=== PATIENT | female | born 1980 | race African-American/Black ===

== ENCOUNTER 2022-09-29 09:45 | Emergency (ER) | payer MEDICAID, OTHER ==
[~2022-09-29] VITALS: Ht 170.2 cm; Wt 59.0 kg
[2022-09-29] MEDS ORDERED: CYCLOBENZAPRINE 10MG TABLET PO ONE (11:00)
[2022-09-29] MEDS ORDERED: KETOROLAC 30MG/ML VIAL IM ONE (11:00)
[2022-09-29 11:42] VITALS: BP 136/81
[2022-09-29] MEDS ORDERED: NAPR-1164 MT (12:18)
[2022-09-29] MEDS ORDERED: CYCL5TAB MT (12:18)
== END 2022-09-29 12:41 | disposition home or self-care (01) ==
LOC: ER 09:45
DX: S16.1XXA Strain of muscle, fascia and tendon at neck level, initial encounter (principal); V43.52XA Car driver injured in collision with other type car in traffic accident, initial encounter; Y93.89 Activity, other specified; Y92.410 Unspecified street and highway as the place of occurrence of the external cause
CPT/HCPCS: 81025; 96372; 99283; J1885